=== PATIENT | female | born 1990 | race Caucasian/White ===

== ENCOUNTER 2016-07-03 14:53 | Emergency (ER) | payer OTHER | END 2016-07-03 15:52 | disposition home or self-care (01) | LOC: ED 14:53 | DX: K08.89 Other specified disorders of teeth and supporting structures (principal); J45.909 Unspecified asthma, uncomplicated; F17.210 Nicotine dependence, cigarettes, uncomplicated ==

== ENCOUNTER 2016-07-31 18:05 | Emergency (ER) | payer OTHER ==
[2016-07-31] MEDS ORDERED: SODIUM CHLORIDE 0.9% 2,000 ML ONE (18:28)
[2016-07-31] MEDS ORDERED: ONDANSETRON 4 MG/2ML 2 ML VIAL ONE (18:28)
[2016-07-31 18:46] LABS: ABSOLUTE NEUTROPHIL COUNT 6.1 K/mm3 (1.8-7.7); BASO % 0.3 % (0.2-1.0); EOS % 0.1 % (0.9-2.9); HEMATOCRIT 40.4 % (37.0-47.0); HEMOGLOBIN 13.7 gm/l (12.0-16.0); IMM NEUT% 0.3 % (0-1); LYMPH # 0.7 (1.0-4.8); LYMPH % 9.1 % (15-45); MEAN CELL VOLUME 85.4 fl (81.0-99.0); MEAN CORPUSCULAR HGB CONC 33.9 g/dl (33.0-37.0); MEAN PLATELET VOLUME 10.8 fl (7.4-10.4); MONO # 0.6 (0.0-0.8); MONO % 8.1 % (4-12); NEUT % 82.1 % (43-75); PLATELET COUNT 191 K/mm3 (130-400); RED CELL DISTRIBUTION WIDTH 12.7 % (11.5-14.5)
[2016-07-31 19:05] LABS: ALB/GLOB RATIO 1.3 (>1.0); ALBUMIN 3.9 gm/dL (3.5-5.7); CALCIUM 8.8 mg/dL (8.6-10.3)
[2016-07-31 21:21] LABS: URINE APPEARANCE CLEAR; URINE BILIRUBIN NEGATIVE (NEGATIVE); URINE BLOOD NEGATIVE (NEGATIVE); URINE COLOR YELLOW; URINE GLUCOSE (UA) NEGATIVE (NEGATIVE); URINE LEUKOCYTE ESTERASE NEGATIVE (NEGATIVE); URINE NITRITE NEGATIVE (NEGATIVE); URINE PROTEIN NEGATIVE (NEGATIVE); URINE UROBILINOGEN NORMAL (0-1 mg/dl)
== END 2016-07-31 21:52 | disposition home or self-care (01) ==
LOC: ED 18:05
DX: R11.2 Nausea with vomiting, unspecified (principal); J45.909 Unspecified asthma, uncomplicated; F17.210 Nicotine dependence, cigarettes, uncomplicated

== ENCOUNTER 2016-08-06 11:54 | Emergency (ER) | payer OTHER ==
[2016-08-06 12:19] LABS: SPECIFIC GRAVITY 1.015 (1.001-1.030); URINE BILIRUBIN 3+ (NEGATIVE); URINE BLOOD 4+ (NEGATIVE); URINE GLUCOSE (UA) NEGATIVE (NEGATIVE); URINE LEUKOCYTE ESTERASE 2+ (NEGATIVE); URINE NITRITE POSITIVE (NEGATIVE); URINE PROTEIN 2+ (NEGATIVE); URINE UROBILINOGEN 12 mg/dL (0-1 mg/dl)
[2016-08-06 12:22] LABS: URINE APPEARANCE CLOUDY
[2016-08-06 12:23] LABS: HCG,QUALITATIVE URINE NEGATIVE; URINE COLOR ORANGE
[2016-08-06 13:00] LABS: URINE RBC >100 /hpf; URINE WBC >100 /hpf
[2016-08-06 13:01] LABS: URINE BACTERIA 3+
[2016-08-06] MEDS ORDERED: CEPHALEXIN 500 MG CAPSULE ONE (13:20)
== END 2016-08-06 13:25 | disposition home or self-care (01) ==
LOC: ED 11:54
DX: N39.0 Urinary tract infection, site not specified (principal)
CPT/HCPCS: 81025; 87086; 81001; 99283 ×2; A9270